=== PATIENT | female | born 1980 | race Caucasian/White ===

== ENCOUNTER 2016-05-22 18:39 | Emergency (ER) | payer SELFPAY ==
[~2016-05-22] VITALS: Ht 160 cm; Wt 59.0 kg
[2016-05-22 18:46] VITALS: BP 112/71
[2016-05-22 19:12] LABS: KETONES,URINE NEGATIVE (NEGATIVE); LEUKOCYTE ESTERASE ,URINE 2+ (NEGATIVE); PREGNANCY TEST URINE QUAL NEGATIVE (NEGATIVE)
[2016-05-22 19:16] LABS: ADD UA MICROSCOPIC YES
[2016-05-22 19:25] LABS: WBC,URINE 21-50 /HPF (0-3)
[2016-05-22 19:26] LABS: ADD URINE CULTURE YES
[2016-05-22] MEDS ORDERED: TRAMADOL HCL 50 MG TABLET PO ONE (19:30)
[2016-05-22] MEDS ORDERED: TRAMADOL HCL 50 MG TABLET ONE (19:32)
[2016-05-22] MEDS ORDERED: ONDANSETRON 4 MG TAB.RAPDIS ONE (19:32)
[2016-05-22] MEDS ORDERED: LIDOCAINE /MPF 1% VIAL 5 ML VIAL ONE (19:33)
[2016-05-22] MEDS ORDERED: CEFTRIAXONE 1 G VIAL ONE (19:33)
[2016-05-22] MEDS ORDERED: ONDANSETRON 4 MG TAB.RAPDIS SL ONE (20:00)
[2016-05-22] MEDS ORDERED: CEFTRIAXONE 1 G VIAL IM ONE (20:00)
== END 2016-05-22 19:47 | disposition home or self-care (01) ==
LOC: EDUNIT# 18:39 → ER 18:45
DX: N39.0 Urinary tract infection, site not specified (principal); Z87.442 Personal history of urinary calculi; Z88.2 Allergy status to sulfonamides
CPT/HCPCS: 81000-TC; 84703-TC; 87086-TC; 87186-TC; A4606; J0696; J3490; Q0162; Z7610

== ENCOUNTER 2016-11-02 10:13 | Emergency (ER) | payer SELFPAY ==
[~2016-11-02] VITALS: Ht 160 cm; Wt 61.2 kg
--- NOTE | 2016-11-02 10:30 | NUR ---
PT CAME IN FOR MIGRAINE SINCE LAST NIGHT- "WORST MIGRAINE OF MY LIFE". REPORTS TO BE NAUSEATED WELL. SEEN BY MD FOR EVAL. VSS. SAFETY AND COMFORT MEASURES PROVIDED. WILL MONITOR.
--- NOTE | 2016-11-02 10:50 | NUR ---
PER MD TO HOLD OFF REGLAN AND BENADRYL ORDERS.
[2016-11-02] MEDS ORDERED: BUTALB/APAP/CAFFEINE 1 EACH TABLET PO STA (10:59)
[2016-11-02] MEDS ORDERED: IV SET PRIMARY 1 EA INFUS.SET MC ONE (11:00)
[2016-11-02] MEDS ORDERED: ONDANSETRON HCL/PF 4 MG/2 ML VIAL ONE (11:00)
[2016-11-02] MEDS ORDERED: IV NS 0.9% 1,000 ML BAG IV ONE (11:00)
[2016-11-02] MEDS ORDERED: diphenhydrAMINE HCL 50 MG/ML VIAL IV ONE (11:00)
[2016-11-02] MEDS ORDERED: KETOROLAC TROMETHAMINE INJ 30 MG/ML VIAL ONE (11:00)
[2016-11-02] MEDS ORDERED: ONDANSETRON HCL/PF 4 MG/2 ML VIAL IV ONE (11:00)
[2016-11-02] MEDS ORDERED: KETOROLAC TROMETHAMINE INJ 30 MG/ML VIAL IV ONE (11:00)
[2016-11-02] MEDS ORDERED: METOCLOPRAMIDE HCL 10 MG/2 ML VIAL IV ONE (11:00)
--- NOTE | 2016-11-02 11:00 | NUR ---
AT FOR IV ACCESS USING ULTRASOUND.
[2016-11-02] MEDS ORDERED: IV NS 0.9% 1,000 ML ONE (11:01)
[2016-11-02] MEDS ORDERED: diphenhydrAMINE HCL 50 MG/ML VIAL ONE (11:44)
[2016-11-02] MEDS ORDERED: METOCLOPRAMIDE HCL 10 MG/2 ML VIAL ONE (11:44)
--- NOTE | 2016-11-02 12:10 | NUR ---
Patient is resting comfortably in bed with eyes closed. Easily aroused. VSS
[2016-11-02] MEDS ORDERED: DEXAMETHASONE SOD PHOSPHATE 10 MG/ML VIAL ONE (12:38)
[2016-11-02] MEDS ORDERED: HYDROMORPHONE 1 MG/1 ML DISP.SYRIN ONE (12:39)
[2016-11-02] MEDS ORDERED: DEXAMETHASONE SOD PHOSPHATE 10 MG/ML VIAL IV ONE (13:00)
[2016-11-02] MEDS ORDERED: HYDROMORPHONE INJ 2 MG/ML DISP.SYRIN IV ONE (13:00)
--- NOTE | 2016-11-02 13:25 | NUR ---
IV removed. Catheter intact and site benign. Pressure and 4x4 applied to site. No bleeding noted.
--- NOTE | 2016-11-02 13:32 | NUR ---
Patient discharged to home in stable condition. Written and verbal after care instructions given. Patient verbalizes understanding of instruction.
[2016-11-02 13:35] VITALS: BP 113/89
== END 2016-11-02 13:36 | disposition home or self-care (01) ==
LOC: ER 10:16
DX: G43.909 Migraine, unspecified, not intractable, without status migrainosus (principal); Z87.442 Personal history of urinary calculi; Z88.2 Allergy status to sulfonamides
CPT/HCPCS: 84703; 96361; 96374; 96375; 99284; A4606; J1100 ×2; J1170 ×2; J1200; J1885; J2405; J2765; J7030; Z7610

== ENCOUNTER 2017-01-31 14:43 | Emergency (ER) | payer OTHER ==
[~2017-01-31] VITALS: Ht 160 cm; Wt 59.0 kg
[2017-01-31 15:12] LABS: APPEARANCE,URINE Clear (CLEAR); BILIRUBIN,URINE Negative (NEGATIVE); BLOOD, URINE Moderate Ery/uL (NEGATIVE); COLOR,URINE Yellow (YELLOW); KETONES,URINE Negative (NEGATIVE); LEUKOCYTE ESTERASE ,URINE Negative (NEGATIVE); NITRITE, URINE Negative (NEGATIVE); PH,URINE 6.5 (5.0-8.0); PROTEIN,URINE Negative (NEGATIVE); UGLUCOSE Negative (NEGATIVE); UROBILINOGEN,URINE 0.2 EU/dL (0.2)
[2017-01-31 15:15] LABS: BACTERIA,URINE Few /HPF (None Seen); SQUAMOUS EPITHELIAL CELL,UR Few /HPF (None Seen); WBC,URINE 0-2 /HPF (0-3)
--- NOTE | 2017-01-31 15:31 | NUR ---
PATIENT IS HARD STICK, UNABLE TO ACCESS IV. RAVINDRA PETERSEN INFORMED, CHANGED ORDER FOR TORADOL TO 60MG IM. MEDICATION ADMINISTERED PER MD ORDERS. WILL HOLD OFF ON REST OF MEDICATIONS ORDERED.
--- NOTE | 2017-01-31 16:31 | NUR ---
AT BEDSIDE, ATTEMPTED US GUIDED IV INSERTION, WITH NO SUCCESS. IV MEDICATIONS CANCELLED BY RAVINDRA PETERSEN. WILL CONTINUE TO MONITOR.
[2017-01-31 17:38] VITALS: BP 113/68
== END 2017-01-31 17:39 | disposition home or self-care (01) ==
LOC: ER 14:44
DX: G43.909 Migraine, unspecified, not intractable, without status migrainosus (principal); Z87.442 Personal history of urinary calculi; Z88.2 Allergy status to sulfonamides
CPT/HCPCS: 81001; 84703; 96372 ×3; 99284; A4606; J1100; J1170; J1200; J1885 ×2; Q0162; Z7610; 81000-TC; J2765; J7030

== ENCOUNTER 2020-03-05 16:12 | Emergency (ER) | payer SELFPAY ==
[~2020-03-05] VITALS: Ht 160 cm; Wt 61.2 kg
--- NOTE | 2020-03-05 16:40 | NUR ---
L SIDED FLANK PAIN X TODAY. ALREADY FINISHED ANTIBIOTICS 3 DAYS AGO. PATIENT A/OX4, BREATHING EVEN AND UNLABORED, NOSOB NOTED, NEEDS ATTENDED, KEPT COMFORTABLE.
[2020-03-05] MEDS: KETOROLAC TROMETHAMINE INJ 60 MG/2 ML VIAL IM ONE (17:21)
[2020-03-05] MEDS ORDERED: MORPHINE SULFATE INJ 4 MG/ML DISP.SYRIN ONE ×2 (17:22→18:35)
[2020-03-05] MEDS ORDERED: ONDANSETRON HCL/PF 4 MG/2 ML VIAL ONE (17:22)
[2020-03-05 17:32] LABS: BILIRUBIN,URINE Negative (NEGATIVE); BLOOD, URINE Trace-intact Ery/uL (NEGATIVE); COLOR,URINE YELLOW (YELLOW); LEUKOCYTE ESTERASE ,URINE Negative (NEGATIVE); NITRITE, URINE Negative (NEGATIVE); PROTEIN,URINE Negative (NEGATIVE); UGLUCOSE Negative (NEGATIVE); UROBILINOGEN,URINE 0.2 EU/dL (0.2)
--- NOTE | 2020-03-05 17:35 | NUR ---
IV LINE ESTABLISHED, BLOOD DRAWN AND SENT TO LAB.
[2020-03-05 17:42] LABS: BACTERIA,URINE Few /HPF (None Seen); SQUAMOUS EPITHELIAL CELL,UR Few /HPF (None Seen); WBC,URINE 0-2 /HPF (0-3)
[2020-03-05] MEDS: ONDANSETRON 4 MG TAB.RAPDIS PO ONE (17:43)
[2020-03-05] MEDS: MORPHINE SULFATE INJ 2 MG/ML DISP.SYRIN IV ONE (17:44)
[2020-03-05] MEDS: IV NS 0.9% 1,000 ML BAG IV ONE (17:44)
[2020-03-05 17:45] LABS: BASOPHILS # (AUTO) 0.1 /CMM (0.0-0.2); BASOPHILS % (AUTO) 0.7 % (0.0-2.0); EOSINOPHILS % (AUTO) 1.5 % (0.0-6.0); HEMATOCRIT 41 % (33-45); HEMOGLOBIN 13.8 g/dL (11.5-14.8); LYMPHOCYTES # (AUTO) 2.4 /CMM (0.8-4.8); LYMPHOCYTES % (AUTO) 25.1 % (20.0-44.0); MEAN CORPUSCULAR HGB CONC 34 g/dl (31.0-36.0); MEAN CORPUSCULAR VOLUME 93 fL (82-100); MONOCYTES # (AUTO) 0.7 /CMM (0.1-1.30); MONOCYTES % (AUTO) 7.2 % (2.0-12.0); NEUTROPHILS # (AUTO) 6.2 /CMM (1.8-8.9); NEUTROPHILS % (AUTO) 65.5 % (43.0-81.0); PLATELET COUNT (AUTO) 418 /CMM (150-450); RED BLOOD CELL COUNT(AUTO) 4.36 MIL/uL (4.0-5.2); WHITE BLOOD COUNT (AUTO) 9.4 K/uL (4.3-11.0)
--- NOTE | 2020-03-05 17:45 | NUR ---
PER LAURA PETERSEN, GIVE ZOFRAN 4MG IVP INSTEAD OF PO.
[2020-03-05 18:18] LABS: CALCIUM, SERUM 9.7 mg/dL (8.5-10.1); POTASSIUM 4.3 mmol/L (3.5-5.1)
--- NOTE | 2020-03-05 18:18 | NUR ---
PATIENT RESTING, NO DISTRESS NOTED.
[2020-03-05 18:32] LABS: ALBUMIN 3.9 g/dL (3.4-5.0); BILIRUBIN,DIRECT 0.1 mg/dL (0.0-0.2); BILIRUBIN,TOTAL 0.2 mg/dL (0.2-1.0)
[2020-03-05] MEDS: MORPHINE SULFATE INJ 4 MG/ML DISP.SYRIN IV ONE (18:40)
--- NOTE | 2020-03-05 19:00 | NUR ---
PATIENT TAKEN TO CT.
--- NOTE | 2020-03-05 19:37 | NUR ---
PT AAOX4, VSS, RESPIRATOINS EVEN AND UNLABORED W/ NAD NOTED. PT CONNECTED TO THE SALES RELATIONSHIP MANAGER AND POX. CALL LIGHT WITHINR EACH. WILL CONTINUE TO MONITOR
--- NOTE | 2020-03-05 20:20 | NUR ---
Patient discharged to home in stable condition. Written and verbal after care instructions given. Patient verbalizes understanding of instruction.IV removed. Catheter intact and site benign. Pressure and 4x4 applied to site. No bleeding noted.pt. ambulatory with a steady gait
[2020-03-05 20:24] VITALS: BP 119/82
== END 2020-03-05 20:25 | disposition home or self-care (01) ==
LOC: ER 16:15
DX: N23 Unspecified renal colic (principal); Z88.2 Allergy status to sulfonamides
CPT/HCPCS: 36415; 74176; 80048; 80076; 81001; 84703; 85025; 87086; 96361; 96374; 96375; 96376; 99284; J2270 ×2; J2405; J7030; 81000-TC

== ENCOUNTER 2020-03-16 17:27 | Emergency (ER) | payer OTHER ==
[~2020-03-16] VITALS: Ht 160 cm; Wt 63.5 kg
[2020-03-16] MEDS ORDERED: ONDANSETRON HCL/PF 4 MG/2 ML VIAL IVP ONE (18:00)
[2020-03-16] MEDS ORDERED: KETOROLAC TROMETHAMINE INJ 30 MG/ML VIAL IV ONE (18:00)
[2020-03-16] MEDS ORDERED: ONDANSETRON HCL/PF 4 MG/2 ML VIAL ONE (18:03)
[2020-03-16 18:04] LABS: BILIRUBIN,URINE Negative (NEGATIVE); BLOOD, URINE Large Ery/uL (NEGATIVE); COLOR,URINE YELLOW (YELLOW); LEUKOCYTE ESTERASE ,URINE Trace (NEGATIVE); NITRITE, URINE Negative (NEGATIVE); PH,URINE 7.5 (5.0-8.0); PROTEIN,URINE Negative (NEGATIVE); UGLUCOSE Negative (NEGATIVE); UROBILINOGEN,URINE 0.2 EU/dL (0.2)
[2020-03-16 18:20] LABS: BACTERIA,URINE Many /HPF (None Seen); RBC,URINE 21-50 /HPF (0-2); SQUAMOUS EPITHELIAL CELL,UR Moderate /HPF (None Seen)
[2020-03-16] MEDS ORDERED: ONDANSETRON 4 MG TAB.RAPDIS ONE (18:28)
[2020-03-16] MEDS ORDERED: KETOROLAC TROMETHAMINE INJ 30 MG/ML VIAL ONE (18:28)
[2020-03-16 18:45] LABS: BASOPHILS % (AUTO) 0.5 % (0.0-2.0); EOSINOPHILS % (AUTO) 1.4 % (0.0-6.0); HEMATOCRIT 41 % (33-45); HEMOGLOBIN 13.7 g/dL (11.5-14.8); LYMPHOCYTES # (AUTO) 1.7 /CMM (0.8-4.8); LYMPHOCYTES % (AUTO) 19.4 % (20.0-44.0); MEAN CORPUSCULAR HGB CONC 33 g/dl (31.0-36.0); MEAN CORPUSCULAR VOLUME 93 fL (82-100); MONOCYTES # (AUTO) 0.6 /CMM (0.1-1.30); MONOCYTES % (AUTO) 6.9 % (2.0-12.0); NEUTROPHILS # (AUTO) 6.3 /CMM (1.8-8.9); NEUTROPHILS % (AUTO) 71.8 % (43.0-81.0); PLATELET COUNT (AUTO) 401 /CMM (150-450); RED BLOOD CELL COUNT(AUTO) 4.42 MIL/uL (4.0-5.2); WHITE BLOOD COUNT (AUTO) 8.8 K/uL (4.3-11.0)
[2020-03-16] MEDS: KETOROLAC TROMETHAMINE INJ 60 MG/2 ML VIAL IM ONE (18:51)
[2020-03-16] MEDS: ONDANSETRON 4 MG TAB.RAPDIS SL ONE (18:51)
[2020-03-16 18:58] LABS: ALBUMIN 3.7 g/dL (3.4-5.0); BILIRUBIN,TOTAL 0.1 mg/dL (0.2-1.0); CALCIUM, SERUM 9.6 mg/dL (8.5-10.1); POTASSIUM 4.6 mmol/L (3.5-5.1); TOTAL PROTEIN, SERUM 7.7 g/dL (6.4-8.2)
[2020-03-16] MEDS ORDERED: MORPHINE SULFATE INJ 4 MG/ML DISP.SYRIN ONE (19:17)
[2020-03-16] MEDS: MORPHINE SULFATE INJ 2 MG/ML DISP.SYRIN IV ONE (19:21)
[2020-03-16] MEDS ORDERED: HYDROMORPHONE 1 MG/1 ML DISP.SYRIN ONE (19:38)
[2020-03-16] MEDS: HYDROMORPHONE 1 MG/1 ML DISP.SYRIN IV ONE (19:44)
[2020-03-16 20:17] VITALS: BP 120/65
== END 2020-03-16 20:17 | disposition home or self-care (01) ==
LOC: ER 17:30
DX: N13.2 Hydronephrosis with renal and ureteral calculous obstruction (principal); N39.0 Urinary tract infection, site not specified; Z88.2 Allergy status to sulfonamides
CPT/HCPCS: 36415; 76770; 80048; 80076; 81001; 83690; 84703; 85025; 87086; 96372; 96374; 96375; 99284; J1170; J1885; J2270; Q0162; J2405

== ENCOUNTER 2020-06-13 14:39 | Emergency (ER) | payer OTHER ==
[~2020-06-13] VITALS: Ht 160 cm; Wt 68.0 kg
--- NOTE | 2020-06-13 14:50 | NUR ---
L flank pain x 3 days. history of kidney stone. Patient a/ox4, breathing even and unlabored, no sob noted, needs attended.
[2020-06-13] MEDS ORDERED: KETOROLAC TROMETHAMINE INJ 30 MG/ML VIAL ONE (15:06)
[2020-06-13] MEDS ORDERED: ONDANSETRON HCL/PF 4 MG/2 ML VIAL ONE (15:06)
[2020-06-13] MEDS ORDERED: MORPHINE SULFATE INJ 4 MG/ML DISP.SYRIN ONE (15:06)
[2020-06-13 15:30] LABS: BILIRUBIN,URINE Negative (NEGATIVE); COLOR,URINE YELLOW (YELLOW); LEUKOCYTE ESTERASE ,URINE Small (NEGATIVE); NITRITE, URINE Negative (NEGATIVE); PROTEIN,URINE Negative (NEGATIVE); UGLUCOSE Negative (NEGATIVE); UROBILINOGEN,URINE 0.2 EU/dL (0.2)
[2020-06-13 15:36] LABS: BACTERIA,URINE 1+ /HPF (None Seen); RBC,URINE NONE SEEN /HPF (0-2); SQUAMOUS EPITHELIAL CELL,UR Few /HPF (None Seen)
[2020-06-13] MEDS: ONDANSETRON HCL/PF 4 MG/2 ML VIAL IVP ONE (15:36)
[2020-06-13] MEDS: MORPHINE SULFATE INJ 2 MG/ML DISP.SYRIN IV ONE (15:36)
[2020-06-13] MEDS: KETOROLAC TROMETHAMINE INJ 30 MG/ML VIAL IV ONE (15:36)
[2020-06-13] MEDS: IV NS 0.9% 1,000 ML BAG IV ONE (15:36)
--- NOTE | 2020-06-13 15:39 | NUR ---
IV line established, blood drawn and sent to lab.
[2020-06-13 15:43] LABS: BASOPHILS # (AUTO) 0.1 /CMM (0.0-0.2); BASOPHILS % (AUTO) 0.5 % (0.0-2.0); HEMATOCRIT 42 % (33-45); HEMOGLOBIN 14.4 g/dL (11.5-14.8); LYMPHOCYTES # (AUTO) 2.4 /CMM (0.8-4.8); LYMPHOCYTES % (AUTO) 22.2 % (20.0-44.0); MEAN CORPUSCULAR HGB CONC 34 g/dl (31.0-36.0); MEAN CORPUSCULAR VOLUME 93 fL (82-100); MONOCYTES # (AUTO) 0.6 /CMM (0.1-1.30); MONOCYTES % (AUTO) 5.4 % (2.0-12.0); NEUTROPHILS # (AUTO) 7.7 /CMM (1.8-8.9); NEUTROPHILS % (AUTO) 70.9 % (43.0-81.0); PLATELET COUNT (AUTO) 380 /CMM (150-450); RED BLOOD CELL COUNT(AUTO) 4.49 MIL/uL (4.0-5.2); WHITE BLOOD COUNT (AUTO) 10.8 K/uL (4.3-11.0)
[2020-06-13] MEDS ORDERED: CEFTRIAXONE 1GM BAG (ER ONLY) 50 ML IV ONE (15:52)
[2020-06-13] MEDS: CEFTRIAXONE 1GM BAG (ER ONLY) 1 GM/50 ML PIGGYBACK IV ONE (15:58)
[2020-06-13 16:01] LABS: CALCIUM, SERUM 9.6 mg/dL (8.5-10.1); POTASSIUM 4.6 mmol/L (3.5-5.1)
[2020-06-13 16:12] LABS: ALBUMIN 4.4 g/dL (3.4-5.0); BILIRUBIN,DIRECT 0.1 mg/dL (0.0-0.2); BILIRUBIN,TOTAL 0.4 mg/dL (0.2-1.0); TOTAL PROTEIN, SERUM 8.6 g/dL (6.4-8.2)
[2020-06-13] MEDS ORDERED: HYDROCODONE/APAP 5/325MG TABLET ONE (16:22)
[2020-06-13] MEDS ORDERED: IBUP-1957 PO (16:25)
[2020-06-13] MEDS: HYDROCODONE/APAP 5/325MG TABLET PO ONE (16:25)
[2020-06-13] MEDS ORDERED: CEPH750C9 PO (16:25)
[2020-06-13] MEDS ORDERED: HYDR-4303 PO (16:25)
[2020-06-13 16:45] VITALS: BP 124/86
--- NOTE | 2020-06-13 16:45 | NUR ---
PATIENT STS SHE FEELS BETTER. IV removed. Catheter intact and site benign. Pressure and 4x4 applied to site. No bleeding noted.Patient discharged to home in stable condition. Written and verbal after care instructions given. Patient verbalizes understanding of instruction.
== END 2020-06-13 16:46 | disposition home or self-care (01) ==
LOC: ER 14:41
DX: N39.0 Urinary tract infection, site not specified (principal); Z88.2 Allergy status to sulfonamides
CPT/HCPCS: 36415; 80048; 80076; 81001; 85025; 87086; 96365; 96375; 99284; J0696; J1885; J2270; J2405; J7030

== ENCOUNTER 2020-09-14 17:03 | Emergency (ER) | payer OTHER ==
[~2020-09-14] VITALS: Ht 157.5 cm; Wt 65.8 kg
[~2020-09-14 17:03] MED LIST: CEPH750C9 PO; HYDR-4303 PO; IBUP-1957 PO
--- NOTE | 2020-09-14 17:03 | NUR ---
PT BIB SELF C/O PAINFUL URINATION FOR 9 DAYS. PT IS AAOX4, NOT IN RESPIRATORY DISTRESS, V/S STABLE, KEPT RESTED AND COMFORTABLE. WILL CONTINUE TO MONITOR.
--- NOTE | 2020-09-14 17:20 | NUR ---
URINE SPECIMEN COLLECTED AND SENT TO LAB.
--- NOTE | 2020-09-14 17:24 | NUR ---
PT SEEN AND EXAMINED BY LAURA PETERSEN.
[2020-09-14] MEDS ORDERED: ONDANSETRON HCL/PF 4 MG/2 ML VIAL ONE (17:41)
[2020-09-14] MEDS ORDERED: MORPHINE SULFATE INJ 4 MG/ML DISP.SYRIN ONE (17:41)
--- NOTE | 2020-09-14 17:44 | NUR ---
LIQUID CHLORINE OPERATOR AT BEDSIDE FOR ULTRASOUND.
[2020-09-14] MEDS ORDERED: MORPHINE SULFATE INJ 2 MG/ML DISP.SYRIN IM ONE (18:00)
[2020-09-14] MEDS ORDERED: ONDANSETRON HCL/PF 4 MG/2 ML VIAL IM ONE (18:00)
[2020-09-14 18:02] LABS: BILIRUBIN,URINE Negative (NEGATIVE); COLOR,URINE YELLOW (YELLOW); LEUKOCYTE ESTERASE ,URINE Small (NEGATIVE); NITRITE, URINE Negative (NEGATIVE); PROTEIN,URINE Negative (NEGATIVE); UGLUCOSE Negative (NEGATIVE); UROBILINOGEN,URINE 0.2 EU/dL (0.2)
[2020-09-14 18:06] LABS: BACTERIA,URINE 1+ /HPF (None Seen); RBC,URINE NONE SEEN /HPF (0-2); SQUAMOUS EPITHELIAL CELL,UR Few /HPF (None Seen)
[2020-09-14] MEDS ORDERED: IBUP-1955 PO (18:20)
[2020-09-14] MEDS ORDERED: TRAM50TA2 PO (18:20)
[2020-09-14] MEDS ORDERED: ONDA4TAB5 PO (18:20)
[2020-09-14] MEDS ORDERED: LEVO750T46 PO (18:21)
[2020-09-14 19:08] VITALS: BP 120/58
--- NOTE | 2020-09-14 19:08 | NUR ---
Patient discharged to home in stable condition. Written and verbal after care instructions given. Patient verbalizes understanding of instruction.
== END 2020-09-14 19:08 | disposition home or self-care (01) ==
LOC: ER 17:06
DX: N39.0 Urinary tract infection, site not specified (principal); Z88.2 Allergy status to sulfonamides; Z79.899 Other long term (current) drug therapy
CPT/HCPCS: 76770; 81001; 84703; 87086; 96372 ×2; 99284; J2270; J2405

== ENCOUNTER 2020-11-09 16:05 | Emergency (ER) | payer OTHER ==
[~2020-11-09] VITALS: Ht 157.5 cm; Wt 65.8 kg
[~2020-11-09 16:05] MED LIST changes: +IBUP-1955 PO; +LEVO750T46 PO; +TRAM50TA2 PO
[2020-11-09 16:16] VITALS: BP 124/75
--- NOTE | 2020-11-09 16:17 | NUR ---
SEEN AND EXAMINED BY RODNEY THRASHER
--- NOTE | 2020-11-09 16:20 | NUR ---
URINE SPECIMEN COLLECTED AND SENT TO LAB.
[2020-11-09 16:38] LABS: BILIRUBIN,URINE Negative (NEGATIVE); COLOR,URINE YELLOW (YELLOW); LEUKOCYTE ESTERASE ,URINE Negative (NEGATIVE); NITRITE, URINE Negative (NEGATIVE); PH,URINE 8.5 (5.0-8.0); PROTEIN,URINE Negative (NEGATIVE); UGLUCOSE Negative (NEGATIVE); UROBILINOGEN,URINE 0.2 EU/dL (0.2)
[2020-11-09] MEDS ORDERED: TRAM50TA2 PO (17:05)
[2020-11-09] MEDS ORDERED: KETOROLAC TROMETHAMINE INJ 30 MG/ML VIAL ONE (17:05)
[2020-11-09] MEDS ORDERED: ONDANSETRON 4 MG TAB.RAPDIS ONE (17:05)
[2020-11-09] MEDS ORDERED: ONDA4TAB11 PO (17:05)
[2020-11-09] MEDS ORDERED: CEPH500C2 PO (17:05)
--- NOTE | 2020-11-09 17:12 | NUR ---
Patient discharged to home in stable condition. Written and verbal after care instructions given. Patient verbalizes understanding of instruction.
[2020-11-09] MEDS ORDERED: KETOROLAC TROMETHAMINE INJ 60 MG/2 ML VIAL IM ONE (17:30)
[2020-11-09] MEDS ORDERED: ONDANSETRON 4 MG TAB.RAPDIS SL ONE (17:30)
== END 2020-11-09 17:12 | disposition home or self-care (01) ==
LOC: ER 16:28
DX: N39.0 Urinary tract infection, site not specified (principal); Z88.2 Allergy status to sulfonamides; Z79.899 Other long term (current) drug therapy
CPT/HCPCS: 81003; 84703; 87086; 96372; 99283; J1885; Q0162

== ENCOUNTER 2021-08-02 14:35 | Emergency (ER) | payer OTHER ==
[~2021-08-02] VITALS: Ht 160 cm; Wt 68.9 kg
[~2021-08-02 14:35] MED LIST changes: +CEPH500C2 PO; +ONDA4TAB11 PO
[2021-08-02] MEDS ORDERED: IV NS 0.9% 1,000 ML IV ONE (15:00)
[2021-08-02] MEDS ORDERED: KETOROLAC TROMETHAMINE INJ 30 MG/ML VIAL IV ONE (15:30)
[2021-08-02] MEDS ORDERED: ONDANSETRON HCL/PF - ER 4 MG/2 ML VIAL IV ONE (15:30)
[2021-08-02 15:38] LABS: BILIRUBIN,URINE NEGATIVE (NEGATIVE); COLOR,URINE YELLOW (YELLOW); LEUKOCYTE ESTERASE ,URINE NEGATIVE (NEGATIVE); NITRITE, URINE NEGATIVE (NEGATIVE); PH,URINE 7.5 (5.0-8.0); PROTEIN,URINE NEGATIVE (NEGATIVE); UGLUCOSE NEGATIVE (NEGATIVE); UROBILINOGEN,URINE 0.2 EU/dL (0.2)
[2021-08-02] MEDS ORDERED: KETOROLAC TROMETHAMINE INJ 30 MG/ML VIAL ONE (16:09)
[2021-08-02] MEDS ORDERED: ONDANSETRON HCL/PF 4 MG/2 ML VIAL ONE (16:09)
[2021-08-02] MEDS ORDERED: TRAMADOL HCL 50 MG TABLET ONE (16:26)
[2021-08-02] MEDS ORDERED: TRAMADOL HCL 50 MG TABLET PO ONE (16:30)
[2021-08-02 16:56] LABS: BASOPHILS % (AUTO) 0.4 % (0.0-2.0); EOSINOPHILS % (AUTO) 0.6 % (0.0-6.0); HEMATOCRIT 38 % (33-45); HEMOGLOBIN 13.1 g/dL (11.5-14.8); LYMPHOCYTES # (AUTO) 2.1 K/uL (0.8-4.8); LYMPHOCYTES % (AUTO) 18.3 % (20.0-44.0); MEAN CORPUSCULAR HGB CONC 34 g/dl (31.0-36.0); MEAN CORPUSCULAR VOLUME 92 fL (82-100); MONOCYTES # (AUTO) 0.6 K/uL (0.1-1.30); MONOCYTES % (AUTO) 4.9 % (2.0-12.0); NEUTROPHILS # (AUTO) 8.7 K/uL (1.8-8.9); NEUTROPHILS % (AUTO) 75.8 % (43.0-81.0); PLATELET COUNT (AUTO) 412 K/uL (150-450); RED BLOOD CELL COUNT(AUTO) 4.16 MIL/uL (4.0-5.2); WHITE BLOOD COUNT (AUTO) 11.5 K/uL (4.3-11.0)
[2021-08-02 17:35] LABS: CALCIUM, SERUM 9.7 mg/dL (8.5-10.1)
[2021-08-02] MEDS ORDERED: HYDR-4209 PO (17:40)
[2021-08-02] MEDS ORDERED: HYDROCODONE/APAP 5/325MG TABLET ONE (17:45)
[2021-08-02] MEDS ORDERED: HYDROCODONE/APAP 5/325MG TABLET PO ONE (18:00)
[2021-08-02 18:20] VITALS: BP 131/75
== END 2021-08-02 18:20 | disposition home or self-care (01) ==
LOC: ER 14:40
DX: N23 Unspecified renal colic (principal); Z88.2 Allergy status to sulfonamides; Z79.899 Other long term (current) drug therapy
CPT/HCPCS: 36410; 36415; 74176; 80048; 81003; 84703; 85025; 96361; 96374; 96375; 99291; J1885; J2405 ×2; J7030

== ENCOUNTER 2023-08-23 21:14 | Emergency (ER) | payer OTHER ==
[~2023-08-23] VITALS: Ht 160 cm; Wt 54.4 kg
[~2023-08-23 21:14] MED LIST changes: +HYDR-4209 PO
[2023-08-23 21:45] LABS: APPEARANCE,URINE SLIGHTLY CLOUDY (CLEAR); BILIRUBIN,URINE NEGATIVE (NEGATIVE); BLOOD, URINE TRACE-INTA Ery/uL (NEGATIVE); COLOR,URINE YELLOW (YELLOW); KETONES,URINE NEGATIVE (NEGATIVE); LEUKOCYTE ESTERASE ,URINE 3+ (NEGATIVE); NITRITE, URINE POSITIVE (NEGATIVE); PROTEIN,URINE NEGATIVE (NEGATIVE); UGLUCOSE NEGATIVE (NEGATIVE); UROBILINOGEN,URINE 0.2 EU/dL (0.2)
[2023-08-23 22:03] LABS: ADD URINE CULTURE YES; BACTERIA,URINE Many /HPF (None Seen); RBC,URINE 0-2 /HPF (0-2); SQUAMOUS EPITHELIAL CELL,UR Many /HPF (None Seen); WBC,URINE 21-50 /HPF (0-3)
[2023-08-23] MEDS ORDERED: CIPROFLOXACIN IV RTU 200 ML IV ONE (22:08)
[2023-08-23] MEDS ORDERED: MORPHINE SULFATE INJ 4 MG/ML DISP.SYRIN ONE (22:08)
[2023-08-23] MEDS ORDERED: ONDANSETRON HCL/PF 4 MG/2 ML VIAL ONE (22:08)
[2023-08-23] MEDS: CIPROFLOXACIN IV RTU 400 MG in PREMIX 1 EA IV STA (22:09)
[2023-08-23] MEDS: ONDANSETRON HCL/PF - ER 4 MG/2 ML VIAL IV ONE (22:09)
[2023-08-23] MEDS: MORPHINE SULFATE INJ 2 MG/ML DISP.SYRIN IV ONE ×2 (22:09→22:40)
[2023-08-23 22:12] LABS: BASOPHILS # (AUTO) 0.1 K/uL (0.0-0.2); BASOPHILS % (AUTO) 0.6 % (0.0-2.0); EOSINOPHILS # (AUTO) 0.1 K/uL (0.0-0.7); EOSINOPHILS % (AUTO) 1.4 % (0.0-6.0); HEMATOCRIT 39 % (33-45); HEMOGLOBIN 13.2 g/dL (11.5-14.8); LYMPHOCYTES # (AUTO) 2.8 K/uL (0.8-4.8); LYMPHOCYTES % (AUTO) 27.8 % (20.0-44.0); MEAN CORPUSCULAR HEMOGLOBIN 32 PG (26.0-33.0); MEAN CORPUSCULAR HGB CONC 34 g/dl (31.0-36.0); MEAN CORPUSCULAR VOLUME 93 fL (82-100); MONOCYTES # (AUTO) 0.7 K/uL (0.1-1.30); MONOCYTES % (AUTO) 6.6 % (2.0-12.0); NEUTROPHILS # (AUTO) 6.3 K/uL (1.8-8.9); NEUTROPHILS % (AUTO) 63.6 % (43.0-81.0); PLATELET COUNT (AUTO) 423 K/uL (150-450); RED BLOOD CELL COUNT(AUTO) 4.17 MIL/uL (4.0-5.2); RED CELL DISTRIBUTION WIDTH 12.8 % (11.5-15.0); WHITE BLOOD COUNT (AUTO) 9.9 K/uL (4.3-11.0)
[2023-08-23 22:19] LABS: CALCIUM, SERUM 8.7 mg/dL (8.5-10.1); CREATININE 1.1 mg/dL (0.6-1.3); POTASSIUM 4.4 mmol/L (3.5-5.1)
[2023-08-23] MEDS ORDERED: MORPHINE SULFATE INJ 2 MG/ML DISP.SYRIN ONE (22:39)
[2023-08-23] MEDS ORDERED: KETO10TA2 PO (23:01)
[2023-08-23] MEDS ORDERED: CIPR500T5 PO (23:01)
[2023-08-23 23:20] VITALS: BP 118/73; TEMP 98.4; O2SAT 98
[2023-08-23 23:30] LABS: PREGNANCY TEST URINE QUAL NEGATIVE (NEGATIVE)
== END 2023-08-23 23:21 | disposition home or self-care (01) ==
LOC: ER 21:15
DX: N12 Tubulo-interstitial nephritis, not specified as acute or chronic (principal); Z87.440 Personal history of urinary (tract) infections; Z87.442 Personal history of urinary calculi; Z88.2 Allergy status to sulfonamides; R10.2 Pelvic and perineal pain
CPT/HCPCS: 99285; 96365; 76770; 96375 ×2; 96376; 85025; 80048; 87086; 84703; 81001; 36415; 84702; J2270 ×2; J2405 ×2; A4216; J0744 ×2; A4223